=== PATIENT | male | born 1950 | race Caucasian/White ===

== ENCOUNTER → 2017-03-14 | Outpatient (CLI) | payer OTHER ==
[~2017-03-14] MED LIST: ADULT LOW DOSE81 MG PO; CARVEDILOL25 MG PO; CHOLESTEROL MA1 EACH PO; COUMADIN 4 MG TA4 M1 PO; GLUCOPHAGE500 MG PO; IBUPROFEN 600600 M1 PO; NORCO 10-325 T1 EACH; SIMVASTATIN40 MG PO
== END ==
LOC: RAD 15:15
DX: E83.52 Hypercalcemia (principal)

== ENCOUNTER → 2019-03-04 | Outpatient (CLI) | payer OTHER | LOC: RAD 11:49 | DX: R06.02 Shortness of breath (principal) ==

== ENCOUNTER → 2019-11-05 | Outpatient (CLI) | payer OTHER | LOC: RAD 11:40 | PROVIDERS: ATTEND Family Medicine | DX: N63.20 Unspecified lump in the left breast, unspecified quadrant (principal); N64.89 Other specified disorders of breast ==